=== PATIENT | female | born 1995 | race Caucasian/White ===

== ENCOUNTER 2016-10-10 20:52 | Emergency (ER) | payer MEDICAID ==
[~2016-10-10] VITALS: Ht 142.2 cm; Wt 59.8 kg
[2016-10-10] MEDS ORDERED: MORPHINE SULFATE 4 MG/ML, 1ML ONE (21:08)
[2016-10-10] MEDS ORDERED: ONDANSETRON 2MG/ML, 2ML ONE (21:09)
[2016-10-10] MEDS ORDERED: ONDANSETRON 2MG/ML, 2ML IVPush ONE (21:30)
[2016-10-10] MEDS ORDERED: MORPHINE SULFATE 4 MG/ML, 1ML IVPush PRN (21:30)
[2016-10-10] MEDS ORDERED: SODIUM CHLORIDE 0.9% 1,000ML IVBOLUS ONE (21:30)
[2016-10-10] MEDS ORDERED: SODIUM CHLORIDE FLUSH 10ML SYR IVF ONE (21:30)
[2016-10-10] MEDS ORDERED: IUD (21:31)
[2016-10-10 21:56] LABS: ASPARTATE AMINO TRANSFERASE 20 U/L (15-37); BLOOD UREA NITROGEN 10 mg/dL (7-18)
[2016-10-10 22:35] VITALS: BP 111/78
[2016-10-10] MEDS ORDERED: ONDANSETRON ODT 4 MG ONE (22:45)
[2016-10-10] MEDS ORDERED: ONDANSETRON ODT 4 MG PO ONE (23:00)
== END 2016-10-10 22:53 | disposition home or self-care (01) ==
LOC: ED 22:46
DX: K80.20 Calculus of gallbladder without cholecystitis without obstruction (principal); R10.13 Epigastric pain
CPT/HCPCS: 36415; 76700; 80053; 81001; 83690; 84703; 85025; 96361; 96374; 96375; 99285; J2405; J7030; Q0162

== ENCOUNTER → 2016-12-08 | Outpatient (CLI) | payer MEDICAID ==
[~2016-12-08] MED LIST: IUD
== END | disposition home or self-care (01) ==
LOC: CFH 08:36
PROVIDERS: ATTEND Surgery
DX: R10.9 Unspecified abdominal pain (principal); R94.5 Abnormal results of liver function studies; Z90.49 Acquired absence of other specified parts of digestive tract
CPT/HCPCS: 76700

== ENCOUNTER 2016-12-11 23:24 | Emergency (ER) | payer MEDICAID ==
[~2016-12-11] VITALS: Ht 142.2 cm; Wt 59.4 kg
[2016-12-12] MEDS ORDERED: ONDANSETRON 2MG/ML, 2ML IVPush ONE (01:00)
[2016-12-12] MEDS ORDERED: SODIUM CHLORIDE FLUSH 10ML SYR IVF ONE (01:00)
[2016-12-12] MEDS ORDERED: METOCLOPRAMIDE 5 MG/ML, 2ML IVPush ONE (01:00)
[2016-12-12] MEDS ORDERED: SODIUM CHLORIDE 0.9% 1,000ML IVBOLUS ONE (01:00)
[2016-12-12] MEDS ORDERED: ONDANSETRON 2MG/ML, 2ML ONE (01:10)
[2016-12-12] MEDS ORDERED: METOCLOPRAMIDE 5 MG/ML, 2ML ONE (01:10)
[2016-12-12 01:27] LABS: ASPARTATE AMINO TRANSFERASE 31 U/L (15-37); BLOOD UREA NITROGEN 6 mg/dL (7-18)
[2016-12-12 03:05] VITALS: BP 105/68
== END 2016-12-12 03:10 | disposition home or self-care (01) ==
LOC: ED 23:59
DX: R11.2 Nausea with vomiting, unspecified (principal); R10.84 Generalized abdominal pain
CPT/HCPCS: 36415; 74020; 80053; 81001; 83690; 84703; 85025; 96361; 96374; 96375; 99285; J2405; J2765; J7030

== ENCOUNTER 2018-01-23 17:34 | Emergency (ER) | payer MEDICAID ==
[~2018-01-23] VITALS: Ht 142.2 cm; Wt 62.1 kg
[2018-01-23 17:45] VITALS: BP 111/81
[2018-01-23 18:22] LABS: BASOPHILS # (AUTO) 0.05 x10^3/uL (0-0.1); BASOPHILS % (AUTO) 0 % (0-1); EOSINOPHILS # (AUTO) 0.16 x10^3/uL (0-0.4); EOSINOPHILS % (AUTO) 1 % (1-7); LYMPHOCYTES % (AUTO) 30 % (22-44); MD NO; MEAN CORPUSCULAR HEMOGLOBIN 29.5 pg (27.0-34.8); MEAN CORPUSCULAR HGB CONC 34.3 g/dL (32.4-35.8); MEAN PLATELET VOLUME 9.6 fL (7.4-10.4); MONOCYTES # (AUTO) 0.85 x10^3/uL (0.2-0.8); MONOCYTES % (AUTO) 7 % (2-9); NEUTROPHILS # (AUTO) 7.07 x10^3/uL (1.8-6.8); NEUTROPHILS % (AUTO) 61 % (42-75); PLATELET COUNT 250 x10^3/uL (130-400); RED CELL DISTRIBUTION WIDTH 13.6 % (9.6-15.2)
[2018-01-23 18:30] LABS: ALBUMIN 4.2 g/dL (3.4-5.0); ANION GAP 6 mmol/L (5-15); CALCIUM 8.6 mg/dL (8.5-10.1); CHLORIDE 103 mmol/L (98-107)
[2018-01-23 18:35] LABS: MICROSCOPIC AUTO
[2018-01-23 18:55] LABS: CULTURE INDICATED? YES
[2018-01-23] MEDS ORDERED: IBUPROFEN 200 MG TABLET ONE (19:55)
[2018-01-23] MEDS ORDERED: IBUPROFEN 200 MG TABLET PO ONE (20:00)
== END 2018-01-23 20:11 | disposition home or self-care (01) ==
LOC: ED 19:12
DX: N30.90 Cystitis, unspecified without hematuria (principal)
CPT/HCPCS: 36415; 80048; 81001; 82040; 84703; 85025; 87077; 87086; 99284

== ENCOUNTER 2018-06-04 13:56 | Emergency (ER) | payer MEDICAID ==
[~2018-06-04] VITALS: Ht 142.2 cm; Wt 63.5 kg
[2018-06-04 14:26] VITALS: BP 109/76
[2018-06-04] MEDS ORDERED: DEXAMETHASONE 4 MG TABLET ONE (14:50)
[2018-06-04] MEDS ORDERED: ALBUTEROL/IPRATROPIUM 2.5MG/0.5MG, 3 ML NPPB SCH (15:00)
[2018-06-04] MEDS ORDERED: DEXAMETHASONE 4 MG TABLET PO ONE (15:00)
[2018-06-04] MEDS ORDERED: ALBUTEROL/IPRATROPIUM 2.5MG/0.5MG, 3 ML ONE (15:00)
== END 2018-06-04 15:43 | disposition home or self-care (01) ==
LOC: ED 15:35
DX: J45.31 Mild persistent asthma with (acute) exacerbation (principal); J00 Acute nasopharyngitis [common cold]
CPT/HCPCS: 71046; 94640; 99283; J7620

== ENCOUNTER 2018-08-07 13:10 | Emergency (ER) | payer MEDICAID ==
[~2018-08-07] VITALS: Ht 142.2 cm; Wt 63.6 kg
[2018-08-07 13:45] VITALS: BP 127/72
--- NOTE | 2018-08-07 14:40 | NUR ---
PT HERE FOR CHEST COLD FOR 3 DAYS. PT REPORTS ALL OF FAMILY IS ILL AT THIS TIME. PT RESTING IN [facility] WITH SON.
--- NOTE | 2018-08-07 15:37 | NUR ---
Patient/Caregiver given discharge instructions and they have confirmed that they understand the instructions. Patient ambulatory with steady gait.
== END 2018-08-07 15:43 | disposition home or self-care (01) ==
LOC: ED 15:37
DX: J10.1 Influenza due to other identified influenza virus with other respiratory manifestations (principal); B34.9 Viral infection, unspecified
CPT/HCPCS: 99283

== ENCOUNTER 2018-08-29 10:00 | Emergency (ER) | payer MEDICAID ==
[~2018-08-29] VITALS: Ht 142.2 cm; Wt 60.0 kg
[2018-08-29 10:45] VITALS: BP 108/78
[2018-08-29] MEDS ORDERED: DEXAMETHASONE 4 MG/ML, 5ML ONE (12:26)
[2018-08-29] MEDS ORDERED: DEXAMETHASONE 4 MG TABLET PO ONE (12:30)
== END 2018-08-29 14:02 | disposition home or self-care (01) ==
LOC: ED 12:50
DX: J02.9 Acute pharyngitis, unspecified (principal); B34.9 Viral infection, unspecified; J45.909 Unspecified asthma, uncomplicated
CPT/HCPCS: 71046; 87081; 87880; 99284

== ENCOUNTER 2018-11-02 09:45 | Emergency (ER) | payer MEDICAID ==
[~2018-11-02] VITALS: Ht 142.2 cm; Wt 60.0 kg
[2018-11-02 10:35] LABS: BASOPHILS # (AUTO) 0.04 x10^3/uL (0-0.1); BASOPHILS % (AUTO) 1 % (0-1); EOSINOPHILS # (AUTO) 0.07 x10^3/uL (0-0.4); EOSINOPHILS % (AUTO) 1 % (1-7); LYMPHOCYTES # (AUTO) 1.77 x10^3/uL (1-3.4); LYMPHOCYTES % (AUTO) 25 % (22-44); MD NO; MEAN CORPUSCULAR HEMOGLOBIN 29.1 pg (27.0-34.8); MEAN CORPUSCULAR HGB CONC 33.9 g/dL (32.4-35.8); MEAN CORPUSCULAR VOLUME 85.7 fL (80-100); MEAN PLATELET VOLUME 9.6 fL (7.4-10.4); MONOCYTES # (AUTO) 0.91 x10^3/uL (0.2-0.8); MONOCYTES % (AUTO) 13 % (2-9); NEUTROPHILS % (AUTO) 61 % (42-75); PLATELET COUNT 234 x10^3/uL (130-400); RED BLOOD COUNT 5.58 x10^6/uL (3.82-5.3); RED CELL DISTRIBUTION WIDTH 13.4 % (9.6-15.2)
[2018-11-02 10:48] LABS: ALBUMIN 3.8 g/dL (3.4-5.0); ANION GAP 5 mmol/L (5-15); CALCIUM 8.7 mg/dL (8.5-10.1); CHLORIDE 105 mmol/L (98-107)
[2018-11-02 10:52] LABS: ALANINE AMINOTRANSFERASE 30 U/L (12-78); ALKALINE PHOSPHATASE 118 U/L (45-117); BILIRUBIN,TOTAL 0.7 mg/dL (0.2-1.0); CREATININE 0.51 mg/dL (0.55-1.02); TOTAL PROTEIN 7.5 g/dL (6.4-8.2)
[2018-11-02] MEDS ORDERED: SODIUM CHLORIDE 0.9% 1,000ML IVBOLUS ONE (11:00)
[2018-11-02] MEDS ORDERED: SODIUM CHLORIDE FLUSH 10ML SYR IVF ONE (11:00)
[2018-11-02 11:10] LABS: MICROSCOPIC AUTO
[2018-11-02 11:13] LABS: CULTURE INDICATED? YES
[2018-11-02] MEDS ORDERED: IBUPROFEN 800 MG TABLET PO ONE (11:30)
[2018-11-02] MEDS ORDERED: POTASSIUM CHLORIDE 20 MEQ TAB.ER.PRT PO ONE (11:30)
[2018-11-02] MEDS ORDERED: IBUPROFEN 800 MG TABLET ONE (11:38)
[2018-11-02] MEDS ORDERED: ONDANSETRON 2MG/ML, 2ML ONE (11:38)
[2018-11-02] MEDS ORDERED: POTASSIUM CHLORIDE 20 MEQ TAB.ER.PRT ONE (11:38)
[2018-11-02] MEDS ORDERED: OMNIPAQUE 350 MG/ML, 100ML BOTTLE ONE (11:57)
[2018-11-02] MEDS ORDERED: ONDANSETRON 2MG/ML, 2ML IVPush ONE (12:30)
[2018-11-02 12:42] VITALS: BP 114/67
== END 2018-11-02 12:44 | disposition home or self-care (01) ==
LOC: ED 10:32
DX: R10.33 Periumbilical pain (principal)
CPT/HCPCS: 36415; 74177; 80053; 81001; 83690; 84703; 85025; 87086; 96374; 99284; J2405; J7030; Q9967

== ENCOUNTER 2020-04-12 10:47 | Emergency (ER) | payer MEDICAID ==
[~2020-04-12] VITALS: Ht 142.2 cm; Wt 68.6 kg
--- NOTE | 2020-04-12 11:13 | NUR ---
PT C/O RIGHT ANKLE PAIN AFTER FALL LAST NIGHT. PT DENIES ANY DIZZINESS OR LIGHT HEADED. NO DEFORMITY OR SWELLING NOTED TO EXT. AWAITING FURTHER ORDERS.
--- NOTE | 2020-04-12 11:15 | NUR ---
PT RIGHT ANKLE CMS INTACT. STRONG PULSE AND CAP REFILL NOTED IN FOOT.
[2020-04-12 11:57] VITALS: BP 114/60
--- NOTE | 2020-04-12 12:21 | NUR ---
PT REC'VD DISCHARGE INSTRUCTION AND EDUCATION. PT HAD NO FURTHER QUESTIONS.
--- NOTE | 2020-04-12 12:29 | NUR ---
PT IN WHEELCHAIR TO DISCHARGE AREA. PT RECEIVED INSTRUCTION ON CRUTCH AND SPLINT USE BY ED EMT'S.
== END 2020-04-12 12:33 | disposition home or self-care (01) ==
LOC: ED 11:41
DX: S93.491A Sprain of other ligament of right ankle, initial encounter (principal); J45.909 Unspecified asthma, uncomplicated; W18.39XA Other fall on same level, initial encounter; Y93.K1 Activity, walking an animal; Y92.488 Other paved roadways as the place of occurrence of the external cause; Y99.8 Other external cause status
CPT/HCPCS: 99284

== ENCOUNTER 2021-02-09 03:11 | Emergency (ER) | payer MEDICAID ==
[~2021-02-09] VITALS: Ht 142.2 cm; Wt 60.6 kg
--- NOTE | 2021-02-09 03:19 | NUR ---
EKG DONE IN TRIAGE.
[2021-02-09] MEDS ORDERED: SODIUM CHLORIDE 0.9% 1,000ML IVBOLUS ONE (03:30)
[2021-02-09] MEDS ORDERED: SODIUM CHLORIDE FLUSH 10ML SYR IVF ONE (03:30)
[2021-02-09] MEDS ORDERED: ACETAMINOPHEN 500 MG TABLET ONE (03:54)
[2021-02-09] MEDS ORDERED: ACETAMINOPHEN 500 MG TABLET PO ONE (04:00)
--- NOTE | 2021-02-09 04:09 | NUR ---
PT SWABBED FOR COVID AND WALKED TO LAB.
[2021-02-09 05:04] VITALS: BP 108/60
--- NOTE | 2021-02-09 05:04 | NUR ---
PT AMBLATED TO BATHROOM AND BACK. BOLIVAR.
== END 2021-02-09 05:22 | disposition home or self-care (01) ==
LOC: ED 05:05
DX: U07.1 COVID-19 (principal); J06.9 Acute upper respiratory infection, unspecified; R06.00 Dyspnea, unspecified; R00.0 Tachycardia, unspecified; J45.909 Unspecified asthma, uncomplicated
CPT/HCPCS: 71045; 93005; 96360; 99285; J7030; U0003; U0005; 96361